=== PATIENT | male | born 1965 | race Caucasian/White ===

== ENCOUNTER 2019-04-27 08:20 | Outpatient (CLI) | payer OTHER, SELFPAY ==
--- NOTE | ~2019-04-27 | US_ITS ---
EXAMINATION: US retroperitoneal comp, US retroperitoneal duplex ltd EXAM DATE: 04/27/2019 10:39 INDICATION: Hypertension. TECHNIQUE: Multiple grayscale and Doppler images of the kidneys and renal arteries were obtained. T here is no prior study for comparison. FINDINGS: Right kidney: There is normal contour and echogenicity. It measures 9.9 x 5.6 x 5.7 centimeters. Th ere are no focal renal lesions identified. There is no hydronephrosis. Left kidney: There is normal contour and echogenicity. It measures 10.0 x 6.1 x 6.5 centimeters. Th ere are no focal renal lesions identified. There is no hydronephrosis. Bladder unremarkable. The aorta peak systolic velocity is 94 cm/s. The right renal artery peak systolic velocity is 168 cm/ s in the proximal segment, 120 cm/s in the mid segment, and 97 cm/s in the distal segment. The left r enal artery peak systolic velocity is 75 cm/s in the proximal segment, 58 cm/s in the mid segment, an d 89 cm/s in the distal segment. IMPRESSION: 1. Sonographically unremarkable kidneys. 2. Renal artery Doppler velocities within normal limits. Reviewed, dictated and finalized at location B. IMPRESSION: 1. Sonographically unremarkable kidneys. 2. Renal artery Doppler velocities within normal limits.
== END 2019-04-27 08:21 | disposition home or self-care (01) ==
PROVIDERS: PCP Internal Medicine; Visit Provider Nurse Practitioner
DX: R79.89 Other specified abnormal findings of blood chemistry (principal); I10 Essential (primary) hypertension
CPT/HCPCS: 76770; 93976

== ENCOUNTER 2019-09-18 09:19 | Outpatient (CLI) | payer OTHER, SELFPAY ==
[2019-09-18 09:39] LABS: Hematocrit 47.1 % (42.0-52.0); Hemoglobin 15.8 g/dL (14.0-18.0); Mean Corpuscular HGB Conc 33.5 g/dl (32-36); Mean Corpuscular Hemoglobin 30.4 pg (26-34); Mean Corpuscular Volume 90.6 fl (80-100); Mean Platelet Volume 10.3 fl (7.4-10.4); Platelet Count Result 277 k/mm3 (150-375); Red Cell Distribution Width 12.7 % (11.5-14.5); White Blood Count 5.8 K/mm3 (4.5-10.0)
[2019-09-18 11:59] LABS: Alanine Aminotransferase 34 U/L (4-50); Albumin Level 4.5 g/dL (3.5-5.1); Alkaline Phosphatase 71 U/L (38-126); Anion Gap 12.8 mmol/L (7-16); Aspartate Amino Transferase 41 U/L (17-59); Bilirubin,Total 0.6 mg/dL (0.2-1.3); Blood Urea Nitrogen 22 mg/dL (9-20); CRP 0.6 mg/dL (<1.0); Calcium 10.2 mg/dL (8.4-10.2); Carbon Dioxide 26 mmol/L (22-30); Chloride 107 mmol/L (98-107); Erythrocyte Sedimentation Rate 4 mm/hr (0-20); Estimated Glomerular Filt Rate 58; Glucose 72 mg/dL (75-110); Potassium 4.8 mmol/L (3.4-5.0); Sodium 141 mmol/L (137-145)
[2019-09-18 12:04] LABS: Complement C3 99 mg/dL (88-165); Rheumatoid Factor < 8.6 IU/ML (<12)
[2019-09-20 04:48] LABS: Lupus dRVVT 1:1 Mix Interpreta Not Indicated; Lupus dRVVT Screen 41 sec (<=45); PTT-LA Screen 30 sec (<=40)
[2019-09-21 09:55] LABS: Anti Cyclic Citrullinated Pept <16 Units (<20)
[2019-09-22 07:43] LABS: SS-A <1.0; SS-B <1.0
[2019-09-22 07:44] LABS: SM Antibody <1.0; SM/RNP Antibody <1.0
== END 2019-09-18 09:20 | disposition home or self-care (01) ==
PROVIDERS: PCP Internal Medicine; Visit Provider Internal Medicine
DX: R76.8 Other specified abnormal immunological findings in serum (principal); M19.90 Unspecified osteoarthritis, unspecified site; Z79.899 Other long term (current) drug therapy
CPT/HCPCS: 36415; 80053; 85027; 85613; 85652; 85730; 86140; 86160; 86200; 86225; 86235; 86430

== ENCOUNTER 2019-09-25 14:29 | Outpatient (CLI) | payer OTHER, SELFPAY ==
[2019-09-25 15:41] LABS: Add Urine Microscopic? NO; Appearance Urine Clear (Clear); Bilirubin Urine Negative (Negative); Blood Urine Negative (Negative); Color Urine Straw (Yellow); Glucose Urine UA Negative (Negative); Ketones Urine Negative (Negative); Leukocyte Esterase Ur Negative LEU/UL (Negative); Nitrate Urine Negative (Negative); Protein Urine Negative (Negative); Specific Grav Ur 1.009 (1.001-1.035); Urobilinogen Urine Negative mg/dL (<2.0)
== END 2019-09-25 14:30 | disposition home or self-care (01) ==
LOC: ANHLAB 14:30
PROVIDERS: PCP Internal Medicine; Visit Provider Internal Medicine
DX: R76.8 Other specified abnormal immunological findings in serum (principal); Z79.899 Other long term (current) drug therapy
CPT/HCPCS: 81003

== ENCOUNTER 2019-09-25 15:24 | Outpatient (CLI) | payer OTHER, SELFPAY ==
--- NOTE | ~2019-09-25 | XR_ITS ---
EXAMINATION: XR hand BI arthritis min 3V EXAM DATE: 09/25/2019 15:44 INDICATION: Unspecified arthritis, pain 4th and 5th digits of right hand. TECHNIQUE: Right hand frontal, lateral and oblique projections obtained and reviewed. Left hand fron dang, lateral and oblique projections obtained and reviewed. Catchers projection of both hands. There is no prior study for comparison. FINDINGS: Right hand: The 3rd finger is amputated at the proximal interphalangeal joint. There is prior injury to the 2nd middle phalanx, and a supporting fixation screw in its base. There is mild to moderate ost eoarthritis of the 2nd digit at both interphalangeal joints, could be cut posttraumatic given the oth er findings. 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 There are no bony e rosions identified. Left hand: There are no bony erosions identified. There are no acute left hand fractures or dislocati ons identified. There is no subcutaneous gas. The soft tissue is unremarkable. There are no radio paque foreign bodies. Minimal polyarticular interphalangeal primary osteoarthritis. IMPRESSION: Right hand posttraumatic findings. Otherwise minimal bilateral polyarticular interphalang eal osteoarthritis. Reviewed, dictated and finalized at location A. IMPRESSION: Right hand posttraumatic findings. Otherwise minimal bilateral poly articular interphalangeal osteoarthritis.
== END 2019-09-25 15:25 | disposition home or self-care (01) ==
PROVIDERS: PCP Internal Medicine; Visit Provider Internal Medicine
DX: M19.90 Unspecified osteoarthritis, unspecified site (principal); R76.8 Other specified abnormal immunological findings in serum
CPT/HCPCS: 73130

== ENCOUNTER → 2019-10-02 14:33 | Outpatient (CLI) | payer OTHER, SELFPAY ==
--- NOTE | ~2019-10-02 | MR_ITS ---
EXAMINATION: MR hand RT wo con DATE: 10/02/2019 15:29 INDICATION: Pain at the right fourth digit. TECHNIQUE: Magnetic resonance imaging (MRI) of the right hand was performed without intravenous contr ast to include the metacarpals and digits. Sequences included sagittal, coronal, and axial T1-weighte d FSE and fluid sensitive FSE STIR. COMPARISON: Hand radiographs dated 09/25/2019 FINDINGS: Amputation of the mid to distal phalanges of the third digit. Metallic magnetic field artifact associ ated with a fixation screw and old healed fracture at the base of the right second middle phalanx. Ad ditional mild deformity at the distal neck of the second middle phalanx corresponding to an additiona l old healed fracture without internal fixation. There is moderate osteoarthritis at the fourth metac arpophalangeal joint with nonuniform joint space narrowing, mild subarticular edema and small margina l osteophytes along the head of the fourth metacarpal. There are couple 3-4 mm loose bodies are of a small amount of fluid within a ganglion cyst palmar to the neck of the neck of the fourth metacarpal. There is thickening and mild increased signal of the ulnar collateral ligament at the fourth metacar pophalangeal joint without significant surrounding edema consistent with scarring related to chronic sprain. Similar findings are seen at the radial collateral ligament at the second metacarpophalangeal joint. Aside from the subarticular edema at the fourth metacarpophalangeal joint there is normal mar row signal with no fracture, osteonecrosis or pathologic marrow replacing process. No cortical erosio ns. The flexor and extensor tendons are normal aside from the distal amputated and proximally retract ed tendons of the third digit. Intrinsic musculature of the hand is unremarkable. IMPRESSION: 1. 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 2. Scarring consistent with chronic sprains of the ulnar collateral ligament of the fourth metacarpop halangeal joint and radial collateral ligament of the second metacarpophalangeal joint. 3. Postoperative change of amputation of the third digit the proximal interphalangeal joint and of sc rew fixation of an old healed fracture at the base of the second middle phalanx. Reviewed, dictated and finalized at location A. IMPRESSION: 1. 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 2. Scarring consistent with chronic sprains of the ulnar collateral ligament of the fourth metacarpophalangeal joint and radial collateral ligament of the sec ond metacarpophalangeal joint. 3. Postoperative change of amputation of the third digit the proximal interphal angeal joint and of screw fixation of an old healed fracture at the base of the second middle phalanx.
== END ==
PROVIDERS: Visit Provider Internal Medicine
DX: M79.642 Pain in left hand (principal); R76.8 Other specified abnormal immunological findings in serum; M19.041 Primary osteoarthritis, right hand
CPT/HCPCS: 73218

== ENCOUNTER 2020-10-06 09:28 | Outpatient (CLI) | payer OTHER, SELFPAY ==
--- NOTE | ~2020-10-06 | XR_ITS ---
EXAMINATION: XR hip RT min 2V DATE: 10/06/2020 10:08 INDICATION: Right hip pain. TECHNIQUE: 3 views of right hip were obtained. COMPARISON: None. FINDINGS: Bone alignment is normal. No fracture. There is mild right hip osteoarthritis. IMPRESSION: 1. Mild right hip osteoarthritis. Reviewed, dictated and finalized at location A.
== END 2020-10-06 09:29 | disposition home or self-care (01) ==
PROVIDERS: PCP Internal Medicine; Visit Provider Clinical Nurse Specialist
DX: M16.11 Unilateral primary osteoarthritis, right hip (principal)
CPT/HCPCS: 73502

== ENCOUNTER → 2020-12-25 15:25 | Outpatient (CLI) | payer OTHER, SELFPAY ==
--- NOTE | ~2020-12-25 | MR_ITS ---
EXAMINATION: MR hip RT wo con DATE: 12/25/2020 17:00 INDICATION: Right hip pain. TECHNIQUE: Magnetic resonance imaging (MRI) of the right hip was performed without intravenous contra st. Sequences included axial and coronal PD-weighted FS FSE and axial T1-weighted FSE of the pelvis. Sequences of the hip included 2D FIESTA, T1-weighted fast GRE, and axial, coronal, and sagittal PD-we ighted FS FSE. COMPARISON: Right hip radiograph 10/06/2020 FINDINGS: Bones/cartilage: Bone alignment is normal. No fracture. There is moderate osteoarthritis of the sacroiliac joints. The femoral head/neck morphologies are normal. There is mild osteoarthritis of the hips. Small field-of- view images demonstrates partial thickness cartilage loss in superior right hip joint. Labrum: There is a tear of the right acetabular labrum at its base superolaterally. Fluid: There is no hip joint effusion. There is mild bilateral trochanteric bursitis. Soft tissues: There is mild tendinopathy of the hamstring origins bilaterally. The iliopsoas tendons are normal. Th e gluteus minimus and gluteus medius tendons are normal bilaterally. The prostate is mildly enlarged. There is prominent fat in right inguinal canal that may be a hernia. IMPRESSION: 1. Mild osteoarthritis of the hips. Reviewed, dictated and finalized at location A. 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
== END ==
PROVIDERS: PCP Internal Medicine; Visit Provider Orthopaedic Surgery
DX: M16.11 Unilateral primary osteoarthritis, right hip (principal)
CPT/HCPCS: 73721

== ENCOUNTER 2021-01-05 09:24 | Outpatient (CLI) | payer OTHER, SELFPAY ==
--- NOTE | ~2021-01-05 | XR_ITS ---
EXAMINATION: XR lg joint inject/asp w image DATE: 01/05/2021 10:02 INDICATION: Right hip pain TECHNIQUE: A time-out was performed to verify the patient's name, date of , and procedure to b e performed. The procedure including the risks, benefits, and alternatives was discussed with the pat ient. Risks discussed included bleeding and infection. The patient understood the risks and agreed to proceed. The skin overlying the right hip joint was prepped and draped in usual sterile fashion. A nesthetic was administered with 1% lidocaine subcutaneously. A 22 G needle was advanced under fluoro scopic guidance into the joint. Injection of 1 mL of Omnipaque 240 confirmed intra-articular positio n of the needle. Subsequently, injectate consisting of 7 mL a 5:2 mixture of 1% lidocaine: 10 mg/mL Kenalog for a total dosage of 20 mg Kenalog was instilled. Washout of contrast was seen confirming in tra-articular administration. The needle was removed and the entry site was cleaned and dressed. The re were no immediate complications. Fluoroscopy exposure time was 0.1 minutes. The total number of im ages was 2. Total DAP was 0.320 mGycm^2 FINDINGS: Real-time fluoroscopy demonstrates the needle in the right hip joint. Patient's pain prior to procedure:08/23. Patient's pain following the procedure: 06/23. IMPRESSION: 1. Right hip joint injection of local anesthetic and steroid with decrease in the patient's presentin g pain. Reviewed, dictated and finalized at location A. 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 Right hip joint injection of local anesthetic and steroid with decrease in t he patient's presenting pain.
== END 2021-01-05 09:25 | disposition home or self-care (01) ==
LOC: ANHIMG 09:28
PROVIDERS: PCP Internal Medicine; Visit Provider Orthopaedic Surgery
DX: M16.11 Unilateral primary osteoarthritis, right hip (principal)
CPT/HCPCS: 20610; 77002; J3301; Q9966